=== PATIENT | female | born 1985 | race Caucasian/White ===

== ENCOUNTER → 2019-12-20 11:33 | Outpatient (BNVA) | payer MEDICAID, SELFPAY | PROVIDERS: Visit Provider Nurse Practitioner Family | DX: M79.671 Pain in right foot (principal) | CPT/HCPCS: 73630 ==

== ENCOUNTER → 2020-05-25 10:50 | Outpatient (BNVA) | payer MEDICAID, SELFPAY | PROVIDERS: PCP Nurse Practitioner Family; Visit Provider Nurse Practitioner Family | DX: R53.83 Other fatigue (principal); E55.9 Vitamin D deficiency, unspecified; D64.9 Anemia, unspecified; J31.1 Chronic nasopharyngitis; J31.2 Chronic pharyngitis; Z79.899 Other long term (current) drug therapy; Z13.6 Encounter for screening for cardiovascular disorders | CPT/HCPCS: 80053; 80061; 81003; 82306; 82607; 82746; 83036; 83550; 84439; 84443; 84481; 85025; 87070 ==

== ENCOUNTER → 2020-07-17 16:29 | Outpatient (BNVA) | payer MEDICAID, SELFPAY | PROVIDERS: PCP Nurse Practitioner Family; Visit Provider Nurse Practitioner Family | DX: R31.9 Hematuria, unspecified (principal); R68.89 Other general symptoms and signs | CPT/HCPCS: 81000 ==

== ENCOUNTER → 2021-02-21 11:42 | Outpatient (BNVA) | payer MEDICAID, SELFPAY | PROVIDERS: PCP Nurse Practitioner Family; Visit Provider Registered Nurse | DX: Z30.09 Encounter for other general counseling and advice on contraception (principal); L70.0 Acne vulgaris; Z01.419 Encounter for gynecological examination (general) (routine) without abnormal findings | CPT/HCPCS: 88175 ==

== ENCOUNTER → 2021-03-01 15:27 | Outpatient (BNVA) | payer MEDICAID, SELFPAY | PROVIDERS: PCP Nurse Practitioner Family; Visit Provider Podiatrist Foot & Ankle Surgery | DX: M79.671 Pain in right foot (principal); M79.672 Pain in left foot | CPT/HCPCS: 73630 ==

== ENCOUNTER 2021-04-12 13:09 | Outpatient (CLI) | payer MEDICAID, SELFPAY ==
--- NOTE | 2021-04-12 13:45 | MR_ITS ---
WS: [id number] MRI OF THE RIGHT FOOT WITHOUT GADOLINIUM ENHANCEMENT. INDICATION: Right foot and heel pain TECHNIQUE: Sagittal PD, axial T1, axial STIR, axial PD, axial T2, sagittal STIR, coronal PD, coronal T2 fat sat FINDINGS: Normal anatomic alignment. Normal talus and calcaneus. Normal talocalcaneal articulation. S mall plantar calcaneal spur. Normal metatarsals. Normal tarsal metatarsal alignment. Normal navicular . Normal bone marrow signal in the calcaneus. No acute fractures. Slight hypertrophic spurring at the talonavicular articulation. Normal tibiotalar articulation. Normal plantar aponeurosis. Distal Achilles is normal in appearance. Normal medial and lateral malleolus. Normal ankle mortise. D istal Achilles is normal in appearance. Normal peroneus longus and brevis. Normal extensor and flexor compartment tendons. MR/MR foot RT wo con* [id number] IMPRESSION: 1. Normal anatomic aligned. No acute fractures. 2. Normal talar calcaneal articulation. Normal talar dome. 3. Normal ankle mortise. 4. Small plantar calcaneal spur. Normal plantar aponeurosis. 5. Mild dorsal hypertrophic changes at the talonavicular articulation. 6. No other significant findings.
== END 2021-04-12 13:10 | disposition home or self-care (01) ==
LOC: RADSHAW 13:14
PROVIDERS: PCP Nurse Practitioner Family; Visit Provider Podiatrist Foot & Ankle Surgery
DX: M72.2 Plantar fascial fibromatosis (principal); M79.671 Pain in right foot; M77.31 Calcaneal spur, right foot
CPT/HCPCS: 73718

== ENCOUNTER 2021-05-15 06:00 | Outpatient (RCR) | payer BC, MEDICAID, SELFPAY | END 2021-06-08 23:59 | disposition home or self-care (01) | LOC: SPT 06:00 | PROVIDERS: PCP Nurse Practitioner Family; Referring Provider Podiatrist Foot & Ankle Surgery; Visit Provider Podiatrist Foot & Ankle Surgery | DX: M72.2 Plantar fascial fibromatosis (principal) | CPT/HCPCS: 97110; 97161 ==

== ENCOUNTER → 2021-05-28 10:34 | Outpatient (BNVA) | payer BC, SELFPAY | PROVIDERS: PCP Nurse Practitioner Family; Visit Provider Registered Nurse | DX: R06.02 Shortness of breath (principal); R00.2 Palpitations; D64.9 Anemia, unspecified; Z79.899 Other long term (current) drug therapy | CPT/HCPCS: 80053; 82607; 84443; 85025 ==

== ENCOUNTER 2021-06-09 06:00 | Outpatient (RCR) | payer BC, MEDICAID, SELFPAY | END 2021-07-09 23:59 | disposition home or self-care (01) | LOC: SPT 06:00 | PROVIDERS: PCP Registered Nurse; Referring Provider Podiatrist Foot & Ankle Surgery; Visit Provider Podiatrist Foot & Ankle Surgery | DX: M72.2 Plantar fascial fibromatosis (principal) | CPT/HCPCS: 97110 ==

== ENCOUNTER 2021-09-12 12:02 | Day surgery (SDC) | payer BC, MEDICAID, SELFPAY ==
[2021-09-10 10:57] VITALS: BMI 26.5
[2021-09-10 11:21] LABS: OR HCG Qualitative Urine Negative (Negative)
--- NOTE | 2021-09-10 11:29 | ANES.PREANE2 ---
Pre-Anesthetic Assessment Height/Weight: Height 1.57 m Weight 65.771 kg Operation Date: 09/12/21 08:05 Proposed Procedures p Laparoscopic Salpingectomy 02874/z30.2(Bilateral) - Demarco Hensley MD Familial anesthetic complications: NOne Social No alcohol and No tobacco Exam alert, oriented x 3, clear to auscultation bilaterally and regular rate & rhythm Airway Mallampati: Class I Dentition: full Pulmonary Shortness of Breath (5 months ) Covid 2 years ago CV/HEM Arrythmia (PVCs) None reported Hepatic None reported GI None reported Metabolic None reported Musc/skel None reported Neuropsych None reported Anesthetic Plan ASA status: 2 Anesthesia: General Risk of > 500 ml blood loss (7ml/kg in children): No Medications/Allergies Home Medications Medication Instructions Recorded Confirmed Last Taken Type gabapentin 100 mg capsule 100 mg PO DAILY PRN #30 cap 08/28/21 09/10/21 Unknown Rx Allergies Allergy/AdvReac Type Severity Reaction Status Date / Time Penicillins Allergy Severe uncertain Verified 09/10/21 09:08 amoxicillin Allergy UNKNOWN Verified 09/10/21 09:08 cephalexin [From Keflex] Allergy ABDOMINAL Verified 09/10/21 09:08 PAIN, DIARRHEA, VOMITING codeine Allergy UNKNOWN Verified 09/10/21 09:08 hydrocodone [From Vicodin] Allergy FOAM AT Verified 09/10/21 09:08 MOUTH AND SKIN FEELS OFF Sulfa (Sulfonamide Allergy EYE Verified 09/10/21 09:08 Antibiotics) BLISTERS, SKIN SHEDS PFSH Anesthesia Medical History Acne vulgaris Anemia Chronic pharyngitis and nasopharyngitis Fatigue Hypertension screen Medication management Vitamin D deficiency Surgical History Cyst of Bartholin's gland duct S/P section S/P cone biopsy of cervix S/P T&A (status post tonsillectomy and adenoidectomy) Status post myringotomy with tube placement of both ears Family History Mother Hypercholesterolemia Hypertension Anesthesia complication Grandmother Hypercholesterolemia maternal grandmother Family/Other Breast cancer maternal aunt 30's, maternal cousin- age onset unknown Stroke maternal aunt Denies family history of Colon cancer Ovarian cancer Diabetes Clotting disorder Heart disease Bleeding disorder Uterine cancer Thyroid condition Social History Smoking and tobacco status: former smoker Alcohol intake: never Household members: children Current occupational status: unemployed Sexually active: Yes Current gender identity: Female Female Reproductive History Date of last menstrual period: 09/09/21 Data Anesthesia Cardiac Studies: Cardiac Event Monitor 06/05/21
[2021-09-10 11:49] LABS: Basophils % 0.6 %; Eosinophils # 0.1 10^3/uL (0.0-0.8); Eosinophils % 1.4 %; Hematocrit 42.2 % (37.0-47.0); Hemoglobin 14.6 g/dL (11.5-15.3); Lymphocytes # 1.9 10^3/uL (0.8-4.8); Lymphocytes % 36.7 %; Mean Corpuscular HGB Conc 34.6 g/dL (30.0-36.0); Mean Corpuscular Hemoglobin 33.3 pg (28.0-34.0); Mean Corpuscular Volume 96.1 fl (81-99); Mean Platelet Volume 10.2 fL (7.4-10.4); Monocytes # 0.5 10^3/uL (0.2-0.9); Monocytes % 9.1 %; Neutrophils # 2.69 10^3/uL (1.8-7.7); Neutrophils % 51.8 %; Nucleated Red Blood Cells % 0 %; Platelet Count 306 10^3/cmm (130-400); Red Blood Count 4.39 10^6/uL (4.1-5.3); Red Cell Distribution Width 12.2 % (12.1-15.1); White Blood Count 5.2 10^3/uL (4.0-10.0)
[2021-09-10 12:19] LABS: Alanine Aminotransferase 18 U/L (0-33); Alkaline Phosphatase 56 IU/L (35-105); Anion Gap 13.7 (5-19); Aspartate Amino Transferase 22 U/L (0-32); Blood Urea Nitrogen 8 mg/dL (6-20); Calcium 9.7 mg/dL (8.5-10.5); Carbon Dioxide 26 mmol/L (22-29); Chloride 102 mmol/L (98-107); Globulin 2.1 g/dL (1.3-4.6); Glomerular Filtration Rate 140.4 mL/min (90-130); Glucose 95 mg/dL (65-115); Osmolality Calculated 284 mOsm/kg (285-295); Potassium 3.7 mmol/L (3.5-5.1); Sodium 138 mmol/L (136-145); Total Bilirubin 0.4 mg/dL (0.15-1.2); Total Protein 7.1 g/dL (6.6-8.7)
[2021-09-10 12:32] LABS: Add Urine Microscopic? YES; Bilirubin Urine Neg (Negative); Blood Urine 2+ (Negative); Glucose Urine UA Norm (Normal); Ketones Urine Negative (Negative); Leukocyte Esterase Urine Negative (Negative); Nitrate Urine Negative (Negative); Protein Urine Neg (Negative); Urine Appearance Clear (CLEAR); Urine Color Yellow (Yellow); Urobilinogen Urine Norm (Negative); pH Urine 7 (5-7)
[2021-09-10 12:33] LABS: Bacteria Urine TRACE /hpf; RBC Urine RARE /hpf (0-2); Squamous Epithelial Cell Urine 0-4 /hpf (0-5); WBC Urine RARE /hpf (0-5)
[2021-09-12] VITALS (12 sets, daily range): BP systolic 111–151; BP diastolic 64–88; PULSE 49–77; RESP 12–18; TEMP 36.3–36.8; O2SAT 95–100
--- NOTE | 2021-09-12 12:40 | W.PM.OPSUD ---
Surgery/Procedure H&P Update DATE OF PROCEDURE: September 12, 2021 DATE H&P PERFORMED: 08/07/21 H&P UPDATE INFORMATION: I have reviewed H&P completed within last 30 days and No changes to prior documentation PREOP DIAGNOSIS: Desire permanent sterilization PLANNED PROCEDURE: Operation Date: 09/12/21 12:50 Proposed Procedures p Laparoscopic Salpingectomy 35906/z30.2(Bilateral) - Demarco Hensley MD
[2021-09-12] MEDS: scopolamine 1.5 Patch 1 PATCH TRANSDERMA (12:52)
[2021-09-12] MEDS: sodium chloride 0.9% 500 ML IV (13:00)
--- NOTE | 2021-09-12 13:29 | P.ANESUD_ITS ---
Pre-Anesthetic Update Pre-Anesthetic Assessment: Date of Surgery/Procedure: 09/12/21 Preop Shivani gnosis: Desire permanent sterilization Proposed Procedure: Operation Date: 09/12/21 12:50 Proposed Procedures p Laparoscopic Salpingectomy 01728/z30.2(Bilateral) - Demarco Hensley MD Any changes to Pre-Anesthetic Assessment?: No Last Intake: Intake Last Liquid Date 09/11/21 Last Liquid Time 04:00 Last Solid Date 09/12/21 Last Solid Time 04:00 Vitals: Temperature 98.3 F 09/12/21 12:20 Temperature Source Temporal Artery S can 09/12/21 12:20 Pulse Rate 69 09/12/21 12:20 Respiratory Rate 18 09/12/21 12:20 Blood Pressure 151/88 09/12/21 12:20 Blood Pressure Dolores n 109 09/12/21 12:20 Pulse Oximetry 100 09/12/21 12:20 Oxygen Delivery Me thod 09/12/21 12:27 Exam: Pre-Anes Outpt Exam: alert, oriented x 3, clear to auscultation bilaterally and regular rate & rhythm Cardiac Studies: Cardiac Event Monitor 06/05/21
[2021-09-12] MEDS: sodium chloride 0.9% 1,000 ML 30 ML IV (13:34)
[2021-09-12] MEDS: vancomycin 1,000 MG in sodium chloride 0.9% 250 ML 250 MG IV (13:35)
[2021-09-12] MEDS: diphenhydrAMINE 50 mg/mL SDV 1mL 25 MG IVP (14:09)
--- NOTE | 2021-09-12 15:24 | P.OP_ITS ---
Operative Report Date of procedure: September 12, 2021 Pre-op diagnosis: Preop Diagnosis Desire permanent sterilization Post-op diagnosis: Desire permanent sterilization. Omental abdominal adhesions. Bladder adhesions to the uterus Post-op findings: Omental abdominal adhesions and bladder adhesions to the uterus Procedure done: Laparoscopic bilateral salpingectomy. Lysis of adhesions Specimens removed/disposition: Left and right fallopian tube Surgeon: Demarco Hensley MD Estimated blood loss (mL): 5 IV fluids (mL): 800 Urine output (mL): 500 Procedure: After informed consent, the patient was taken to the operating room where general anesthesia was administered. She was placed in the dorsal lithotomy position and prepped and draped in sterile fashion. Pre-Procedure Time-Out verifying the correct patient identity, correct procedure verified with consent, correct site and side, correct patient position, availability of correct implants and any special equipment or requirements was performed and acknowledge by the OR team. The patient was examined under anesthesia and found to have a normal uterus with normal adnexa. A weighted speculum was placed in the vagina, and the anterior lip of cervix was grasped with the single toothed tenaculum. A uterine manipulator was advanced into the endocervical canal and uterus. The tenaculum was removed after uterine manipulator was secured. The speculum was removed from the vagina. An intraumbilical incision was made with a scalpel. While tenting up on the abdomen, a Verres needle was admitted into the intra-abdominal cavity. A saline drop test was performed and noted to be within normal limits. Pneumoperitoneum was attained with 4 liters of carbon dioxide. The Verres needle was removed. A 5 mm Opitc view trocar and sleeve were admitted into the abdomen and laparoscopic confirmation of location was achieved. A second incision was made 3 cm above the symphysis pubis, and a 5 mm trocar sleeves were admitted into the abdomen under direct laparoscopic visualization without complication. A survey revealed normal abdominal anatomy with the exception of omental adhesion on the anterior abdominal wall. A 5 mm blunt probe was advanced through the second trocar sleeve, and light manipulation of ovaries and uterus to assess the posterior aspects was performed. The pelvic survey shows normal uterus, left and right adnexa. The adhesion was fulgurated and transected with good hemostasis with the Voyant. The patient was placed into Trendelenburg position. The fallopian tubes were inspected bilaterally and the fimbriated ends of the fallopian tubes were visual ized bilaterally. Attention was then directed to the right side. The fallopian tube and mesosalpinx were grasped and the underlying mesosalpinx was cauterized and cut using the Fredioyant device. Serial cauterization and cutting was used to separate the fallopian tube from the underlying mesosalpinx until it could be amputated cutting it approximated 2 cm from the cornua. Attention was then turned to the contralateral fallopian tube, which was removed in similar fashion. Both specimens were removed through the trocar and sent to pathology. The instruments were removed. The suprapubic trocar port was removed under direct visualization insuring good hemostasis. The carbon dioxide was allowed to escape from the abdomen. The intraumbilical trocar sleeve was withdrawn under visualization with laparoscope in the sleeve to insure hemostasis. The skin incisions were closed with 3-O Monocryl subcuticular stich and Dermabond. The instruments were removed from the vagina, and excellent hemostasis was noted. The patient tolerated the procedure well, and sponge, lap and needle count were correct times two. The patient was taken to the recovery room in good condition.
[2021-09-12] MEDS: ondansetron 2 mg/ML SDV 2 mL 4 MG IVP ×3 (15:40→16:52)
[2021-09-12] MEDS: HYDROmorphone 1 mg/mL INJ 1 mL 0.5 MG IVP (15:52)
--- NOTE | 2021-09-12 16:39 | SUR.PHASEII ---
1620-perez catheter discontinued upon arrival to outpatients postop phase II area. 10ml saline removed, patient tolerated poorly.
[2021-09-12] MEDS: diphenhydrAMINE 50 mg/mL SDV 1mL 12.5 MG IVP (17:15)
== END 2021-09-12 17:38 | disposition home or self-care (01) ==
PROVIDERS: PCP Registered Nurse; Visit Provider Obstetrics & Gynecology
PROC: (CPT 58661; principal; 2021-09-12 12:40)
PROC: (CPT 58661; 2021-09-12 12:40)
DX: Z30.2 Encounter for sterilization (principal); K66.0 Peritoneal adhesions (postprocedural) (postinfection); Z87.891 Personal history of nicotine dependence
CPT/HCPCS: 58661; 36415; 80053; 81001; 81025; 84703; 85025; 86850; 86900; 88302; J1100; J1170; J1200; J2250; J2405; J2704; J2710; J3010; J3370; J3490; J7030; J7040; J7050

== ENCOUNTER 2021-11-23 18:53 | Emergency (ER) | payer BC, MEDICAID, SELFPAY ==
[2021-11-23 19:07] VITALS: BP 163/102; PULSE 91; RESP 18; TEMP 37.2; O2SAT 96
--- NOTE | 2021-11-23 20:17 | W.ED.GENADLT ---
Documented by User: Bobby Gregg MD 11/23/21 20:48 HPI - General Adult General: Chief complaint: Allergic Reaction Stated complaint: allergic reaction Time Seen by Provider: 11/23/21 19:55 History of Present Illness: Patient is a 36-year-old female with a history of allergies to multiple medication presented to the emergency room with concerns of erythema, hives and pruritus since 430 today. Patient tells me that she was sitting in her couch when this all started. Patient denies being in contact with anything if she was previously allergic to. Patient denies any diarrhea nausea/vomiting, shortness of breath. Patient reports feeling itchy all over. Patient reports taking Benadryl without any improvement symptom. Patient presents emergency for further evaluation. No sick contacts around her. Onset:4:30pm Duration:3 hrs Location:home Severity:moderate Associated symptoms: Reports rash (diffuse urticaria and erythema, +generalized pruritis); Deny chest pain, dyspnea, nausea, palpitations or vomiting Review of Systems Const: Denies: fever(s) or chills Eyes: Denies: change in vision ENMT: Denies: mouth pain Card: Denies: chest pain or palpitations Resp: Denies: dyspnea or non-productive cough GI: Denies: abdominal pain, nausea, vomiting or diarrhea : Denies: dysuria Musc: Denies: extremity pain Skin/Breast: Reports: rash (diffuse urticaria and erythema, +generalized pruritis) Neuro: Denies: weakness in extremities Psych: Reports: other (Normal mood) Jef/Lymph: Denies: easy bruising PFSH ED PFSH: Medical History Acne vulgaris Aftercare following surgery of the genitourinary system Anemia Chronic pharyngitis and nasopharyngitis Fatigue Herpes genitalia Hypertension screen Medication management Vitamin D deficiency Surgical History Cyst of Bartholin's gland duct H/O bilateral salpingectomy 09/12/2021- laparoscopic bilateral salpingectomy and lysis of adhesions performed by Dr. Hensley at [facility] S/P section S/P cone biopsy of cervix S/P T&A (status post tonsillectomy and adenoidectomy) Status post myringotomy with tube placement of both ears Family History Mother Hypercholesterolemia Hypertension Anesthesia complication Grandmother Hypercholesterolemia maternal grandmother Family/Other Breast cancer maternal aunt 30's, maternal cousin- age onset unknown Stroke maternal aunt Denies family history of Colon cancer Ovarian cancer Diabetes Clotting disorder Heart disease Bleeding disorder Uterine cancer Thyroid condition Social History Smoking and tobacco status: former smoker Alcohol intake: never Household members: children Current occupational status: unemployed Sexually active: Yes Current gender identity: Female Physical Exam Const: COMMON NORMALS: alert HENMT: COMMON NORMALS: atraumatic HEAD & SCALP: atraumatic MOUTH: moist mucous membranes not abnormal Eye: COMMON NORMALS: EOMs intact bilaterally and conjunctivae normal CONJUNCTIVA: Yes conjunctivae normal Neck/C-Spine: COMMON NORMALS: full ROM and supple Resp: COMMON NORMALS: normal respiratory effort and clear to auscultation bilaterally AUSCULTATION: clear to auscultation bilaterally OTHER: +no wheezes or rhonchi Cardio: COMMON NORMALS: regular rate RATE: regular rate GI: COMMON NORMALS: Soft to palpation and non-tender PALPATION: Yes Soft to palpation Extremity: COMMON NORMALS: full ROM Neuro: SENSORIUM/ORIENTATION: Yes alert MOTOR EXAM: No Abnormal motor strength present and Other motor observations present (no focal motor deficits) Psych: COMMON NORMALS: speech normal SPEECH: Yes normal speech MOOD & AFFECT: Yes euthymic mood Skin: NARRATIVE SKIN EXAM: + Diffuse erythema with multiple areas of erythema Course Vital Signs: Vital signs: Vital Signs Temperature 98.9 F 11/23/21 19:07 Pulse Rate 87 11/23/21 23:17 Respiratory Rate 16 11/23/21 23:17 Blood Pressure 148/97 11/23/21 23:17 Pulse Oximetry 99 11/23/21 23:17 MDM - General Adult Medical Decision Making 36-year-old female with known allergies to multiple drugs presenting to the emergency room for evaluation of diffuse erythema, and generalized pruritus. On physical exam, patient has diffuse erythema with urticaria. No oral airway involvement, no respiratory involvement. Patient is very uncomfortable and scratching her body. Patient received Benadryl, Pepcid, Solu-Medrol with improvement in symptoms. Rx: pepcid, benadryl, and prednisone PRN allergic reaction Disposition: Discharge. Patient counseled regarding diagnostic impression, treatment plan. Patient given ED strict return precautions to return for continuation, worsening, or development of new symptoms. Instructed to f/u w/ PCP regarding symptoms today. Patient verbalized understanding. Discharge Plan Discharge Patient Disposition: Home Clinical Impression: Allergic reaction, Urticaria Condition: Stable Prescriptions: New Benadryl Allergy 25 mg tablet 25 mg PO TID PRN (Reason: pruritis) 5 Days Qty: 15 0RF Pepcid 20 mg tablet 20 mg PO BID PRN (Reason: allergic reaction) 5 Days Qty: 10 0RF prednisone 50 mg tablet 50 mg PO DAILY PRN (Reason: allergic reaction) 5 Days Qty: 5 0RF No Action gabapentin 100 mg capsule 100 mg PO DAILY PRN (Reason: pain (scale score 7-10)) Qty: 30 1RF Rx Instructions: patient states she has prescription but has not had to take any of the medication yet. clindamycin-benzoyl peroxide [Benzaclin Pump] 1-5 % gel with pump 1 applic topical BID Qty: 50 0RF ibuprofen 800 mg tablet 800 mg PO TID PRN (Reason: pain) Qty: 60 0RF acetaminophen 325 mg capsule 325 mg PO Q4H PRN (Reason: fever or pain) Qty: 60 0RF Discharge Orders: Discharge ED (Routine); Ordered 11/23/21 Ordered By: Sal Bosch Referrals: Gosia Gold, TALENT ACQUISITION COORDINATOR [Primary Care Provider] - Discharge Diet: Advance as tolerated Discharge Activity: Increase activity as tolerated Patient Instructions: Allergies (ED) Activity Restrictions/Additional Instructions: Please follow-up with your primary care provider for further evaluation of your allergic triggers. [place] to the emergency have any difficulty breathing, nausea surrounding, dehydration, worsening hives, or any new concerning complaints. Do not drive and take Benadryl at the same time. 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
[2021-11-23] MEDS: famotidine 20 mg/2 mL INJ 40 MG IVP ×2 (20:42→22:35)
[2021-11-23] MEDS: sodium chloride 0.9% 1,000 ML 999 ML IV (20:43)
[2021-11-23] MEDS: diphenhydrAMINE 50 mg/mL SDV 1mL IVP ×2 (20:44→22:35)
[2021-11-23] MEDS: predniSONE 20 mg Tablet 60 MG PO (22:35)
[2021-11-23 23:17] VITALS: BP 148/97; PULSE 87; RESP 16; O2SAT 99
[2021-11-23 23:34] VITALS: BP 148/97; PULSE 87; RESP 16; O2SAT 99
== END 2021-11-23 23:49 | disposition home or self-care (01) ==
PROVIDERS: Emergency Provider Emergency Medicine; PCP Registered Nurse
DX: T78.40XA Allergy, unspecified, initial encounter (principal); X58.XXXA Exposure to other specified factors, initial encounter; L50.0 Allergic urticaria
CPT/HCPCS: 96361; 96374; 96375; 96376; 99284; J1200; J2930; J3490; J7030; J7512

== ENCOUNTER 2022-05-01 12:09 | Outpatient (CLI) | payer BC, MEDICAID, SELFPAY ==
--- NOTE | 2022-05-01 | ECG_ITS ---
[facility] Test Date: 2022-05-01 Pat Name: Whitney Garcia Department: Room: Gender: Female Splicing Machine Operator: Kathya Naranjo : 1985 Requested By: Adela Arriola Order Number: [id number] Shahnaz MD: Adela Arriola M.D. Interpretive Statements NAME OF STUDY: TREADMILL STRESS TEST INDICATION: Chest Pain Baseline blood pressure of 128/77 mm Hg, heart rate of 74 beats per minute and oxygen saturation of 98%. EKG showed normal sinus rhythm, normal axis with normal ST-Ts. The patient exercised for 6 minutes 44 seconds on a standard Serafin protocol. Patient attained a maximum heart rate of 165 beats per minute(89% of the maximum predicted heart rate) with a blood pressure at the peak exercise of 172/85 mm Hg. The EKG at the peak exercise revealed sinus tachycardia with nonspecific T wave inversion in lead III. Patient did not have any chest pain or any significant arrhythmis with the exercise During the recovery phase, there were no new changes. Blood pressure at the end of the recovery phase was 140/84 mm Hg with a heart rate of 99 beats per minute and oxygen saturation of 98%. CONCLUSION: 1. Normal EKG response to treadmill exercise. 2. No exercise-induced chest pain or cardiac arrhythmia 3. Fair exercise tolerance. Patient exercised for 6 minutes 44 seconds and attained a maximum of 10.2 METs. Maximum VO2 of 35.7 mL/kg/min. 4. Baseline normal blood pressure with normal response to exercise. Electronically Signed On 05-06-2022 12:27:53 WOOL FLEECE SORTER by Adela Arriola M.D. [email or web address]
[2022-05-01 12:13] VITALS: BMI 26.6
[2022-05-01 13:07] VITALS: BP 140/84; PULSE 96
== END 2022-05-01 12:10 | disposition home or self-care (01) ==
LOC: CDL 12:10
PROVIDERS: PCP Registered Nurse; Visit Provider Internal Medicine Cardiovascular Disease
DX: R07.9 Chest pain, unspecified (principal)
CPT/HCPCS: 93017

== ENCOUNTER → 2022-11-26 11:15 | Outpatient (BNVA) | payer BC, MEDICAID, SELFPAY | PROVIDERS: PCP Registered Nurse; Visit Provider Podiatrist Foot & Ankle Surgery | DX: M72.2 Plantar fascial fibromatosis (principal); M79.671 Pain in right foot; M79.672 Pain in left foot | CPT/HCPCS: 73630 ==

== ENCOUNTER → 2022-12-26 16:10 | Outpatient (BNVA) | payer SELFPAY | PROVIDERS: PCP Registered Nurse; Visit Provider Family Medicine | DX: B37.31 Acute candidiasis of vulva and vagina (principal) | CPT/HCPCS: 81000 ==

== ENCOUNTER 2023-06-03 09:11 | Outpatient (CLI) | payer SELFPAY ==
--- NOTE | 2023-06-03 09:30 | MR_ITS ---
WS: [id number] EXAMINATION: MR foot LT wo con* [id number] ORDER DATE: 06/03/2023 9:29 AM COMPARISON: None. HISTORY: M72.2 - Plantar fascial fibromatosis CONTRAST: None. TECHNIQUE: Sagittal T1, sagittal STIR, coronal PD, coronal T2, axial T1, axial T2, and axial PD imagi ng with fat saturation technique. FINDINGS: Prominent plantar calcaneal spur. Hypertrophic changes at the talonavicular articulation. T hickening of the medial head plantar fascia just proximal to the calcaneal insertion measuring approx imately 6 mm in short axis dimension. Findings compatible with plantar fasciitis and plantar fibromat osis in this area. Associated fluid and edema in this location. Fluid and edema extends into the plan tar hindfoot subcutaneous fat. No significant edema in the underlying calcaneus. Normal medial and la teral malleolus. Normal talar dome. Achilles is normal in appearance. No other acute findings. IMPRESSION: 1. Focal nodular thickening involving the medial head of the plantar fascia just proximal to the woody caneal insertion with associated fluid and edema compatible with plantar fibromatosis described above . 2. Plantar calcaneal spurring. 3. No other acute findings.
== END 2023-06-03 09:12 | disposition home or self-care (01) ==
LOC: RAD 09:11
PROVIDERS: PCP Registered Nurse; Visit Provider Podiatrist Foot & Ankle Surgery
DX: M72.2 Plantar fascial fibromatosis (principal); M77.32 Calcaneal spur, left foot
CPT/HCPCS: 73718

== ENCOUNTER → 2023-09-12 10:48 | Outpatient (BNVA) | payer SELFPAY | PROVIDERS: PCP Registered Nurse; Visit Provider Nurse Practitioner Family | DX: M25.50 Pain in unspecified joint (principal); B02.23 Postherpetic polyneuropathy; R35.0 Frequency of micturition; I10 Essential (primary) hypertension; T78.40XA Allergy, unspecified, initial encounter; R53.83 Other fatigue | CPT/HCPCS: 80053; 80061; 81000; 83721; 84443; 85025; 86003; 86008; 86140; 86787; 87070; 87075; 87205 ==

== ENCOUNTER → 2023-10-13 10:00 | Outpatient (BNVA) | payer SELFPAY | PROVIDERS: PCP Registered Nurse; Visit Provider Nurse Practitioner Family | DX: T78.40XA Allergy, unspecified, initial encounter (principal) | CPT/HCPCS: 86003 ==

== ENCOUNTER → 2025-02-15 09:56 | Outpatient (BNVA) | payer OTHER, SELFPAY | PROVIDERS: PCP Registered Nurse; Visit Provider Student in an Organized Health Care Education/Training Program | DX: M25.561 Pain in right knee (principal); M94.261 Chondromalacia, right knee | CPT/HCPCS: 73560; 73565 ==

== ENCOUNTER → 2025-03-18 09:36 | Outpatient (BNVA) | payer OTHER, SELFPAY | PROVIDERS: PCP Nurse Practitioner Family; Visit Provider Nurse Practitioner Family | DX: I10 Essential (primary) hypertension (principal); R53.83 Other fatigue; E55.9 Vitamin D deficiency, unspecified | CPT/HCPCS: 80053; 80061; 82306; 84443; 85025 ==